=== PATIENT | female | born 1950 | race Caucasian/White ===

== ENCOUNTER 2018-02-19 09:52 | Emergency (ER) | payer OTHER ==
[~2018-02-19] VITALS: Ht 165.1 cm; Wt 105.0 kg
[~2018-02-19 09:52] MED LIST: ALBINS INH; ALBU1AER9 INH; CETI10TA84 PO; LISI-725 PO; LSX20 PO; MCRKUNK; OXYC-57 PO
[2018-02-19 10:02] VITALS: TEMP 36.8; Ht 165.1 cm; Wt 105.0 kg
[2018-02-19] MEDS ORDERED: KETOROLAC TROMETHAMINE 30 MG/ML VIAL IV STA (10:24)
--- NOTE | 2018-02-19 10:37 | DIAGNOSTIC IMAGING REPORT ---
CHEST ONE VIEW PORTABLE CLINICAL HISTORY: Atypical chest pain COMPARISON STUDY: May 2014 FINDINGS: [ The cardiac and mediastinal contours are normal. There is no evidence of focal pulmonary consolidation. There is no evidence of failure. No pleural effusions are visualized. There is minor left basilar atelectasis/scarring.. There is a 6 mm linear opacity within left midlung zone, likely representing atelectasis or summation. IMPRESSION: AP portable study. No evidence of focal pulmonary consolidation. Low suspicion 6 mm left midlung zone opacity, likely representing atelectasis or summation. Electronically signed by: Ibrahima Lopez M.D. 02/19/2018 10:36 AM Dictated Date/Time: 02/19/2018 10:33 AM
[2018-02-19 10:48] LABS: BASO % 0.1 %; BASO ABS # 0.01 K/uL (0-0.2); EOS % 0.7 %; EOS ABS # 0.05 K/uL (0-0.5); HEMATOCRIT 33.5 % (37-47); HEMOGLOBIN 10.7 g/dL (12.0-16.0); IG# 0.03 K/uL (0.00-0.02); LYMPH % 12.7 %; LYMPH ABS # 0.85 K/uL (1.2-3.4); MEAN CELL VOLUME 92.8 fL (80-100); MEAN CORPUSCULAR HEMOGLOBIN 29.6 pg (25-34); MEAN CORPUSCULAR HGB CONC 31.9 g/dl (32-36); MEAN PLATELET VOLUME 9.2 fL (7.4-10.4); MONO % 7.2 %; MONO ABS # 0.48 K/uL (0.11-0.59); NEUT % 78.9 %; NEUT ABS # 5.26 K/uL (1.4-6.5); PLATELET COUNT 148 K/uL (130-400); RED CELL DISTRIBUTION WIDTH CV 13.3 % (11.5-14.5); WHITE BLOOD COUNT 6.68 K/uL (4.8-10.8)
[2018-02-19 10:53] VITALS: O2SAT 94
[2018-02-19 11:06] LABS: ALBUMIN 3.3 gm/dl (3.4-5.0); ALT/SGPT 14 U/L (12-78); AST/SGOT 12 U/L (15-37); BLOOD UREA NITROGEN 20 mg/dl (7-18); CALCIUM 9.2 mg/dl (8.5-10.1); CARBON DIOXIDE 31 mmol/L (21-32); CREATININE 0.93 mg/dl (0.60-1.20); GLUCOSE 127 mg/dl (70-99); LIPASE 70 U/L (73-393); POTASSIUM 3.9 mmol/L (3.5-5.1); SODIUM 140 mmol/L (136-145)
[2018-02-19 11:11] LABS: ALKALINE PHOSPHATASE 69 U/L (45-117); CKMB 0.8 ng/ml (0.5-3.6)
[2018-02-19] MEDS ORDERED: SPRIN/30 INH (11:35)
[2018-02-19] MEDS ORDERED: VNTHFA/IN INH (11:35)
[2018-02-19] MEDS ORDERED: ALPR-411 PO (11:35)
[2018-02-19] MEDS ORDERED: FRS/40 PO (11:35)
[2018-02-19] MEDS ORDERED: POTA10PO PO (11:35)
[2018-02-19] MEDS ORDERED: LISI-725 PO (11:35)
[2018-02-19] MEDS ORDERED: SERT-234 PO (11:35)
[2018-02-19] MEDS ORDERED: OPTIRAY 320 IV PRN (12:00)
--- NOTE | 2018-02-19 13:06 | DIAGNOSTIC IMAGING REPORT ---
CT ANGIOGRAM OF THE CHEST CLINICAL HISTORY: Atypical left-sided chest pain. Possible pulmonary embolism COMPARISON STUDY: Chest x-ray dated 02/19/2018 TECHNIQUE: Following the IV administration of 94 mL of Optiray-320, CT angiogram of the thorax was performed from the thoracic inlet to the lung bases utilizing the pulmonary embolus protocol. Images are reviewed in the axial, sagittal, and coronal planes. IV contrast was administered without complication. MIP imaging was performed. A dose lowering technique was utilized adhering to the principles of ALARA. CT DOSE: 612.18 mGycm FINDINGS: There is a multinodular thyroid gland including a 17 mm and 18 mm right lobe nodules. Nonemergent thyroid ultrasonography is recommended in follow-up No pathologically enlarged axillary mediastinal or hilar lymph nodes were visualized. There was no evidence of thoracic aortic dilatation. There were no pulmonary artery filling defects to indicate acute pulmonary embolism. No pleural effusions are visualized. There is pulmonary emphysema. There are clustered pulmonary nodules within the left upper lobe posteriorly measuring up to 9 mm in diameter. The distribution favors an infectious etiology. Short-term follow-up is recommended. There is a 3 cm right sided paravertebral mass with associated subtle rib destruction. This lesion should be presumed neoplastic unless proven otherwise. The partially visualized portions of the spleen appears mildly enlarged IMPRESSION: 1. No evidence of acute pulmonary embolism 2. 3 cm right sided paravertebral mass with subtle associated rib destruction. This lesion should be presumed neoplastic unless proven otherwise 3. Cluster pulmonary nodules within the left upper lobe posteriorly. Distribution favors an infectious etiology. Short-term follow-up is recommended 4. Multinodular thyroid gland 5. Suspected splenomegaly Electronically signed by: Ibrahima Lopez M.D. 02/19/2018 1:05 PM Dictated Date/Time: 02/19/2018 12:55 PM
--- NOTE | 2018-02-19 13:50 | EMERGENCY ROOM VISIT NOTE ---
History Report prepared by Abby: Willian Gupta Under the Supervision of: Dr. Theo Turk M.D. (3) First contact with patient: 10:17 Chief Complaint: CHEST PAIN Stated Complaint: CHEST PAIN History of Present Illness The patient is a 67 year old female who presents to the Emergency Room with complaints of constant left lower chest pain beginning one hour ago. She was sitting when her pain began. Her pain began suddenly. The patient describes her pain as "stabbing". She rates her pain as a 7/10 in severity. She also complains of nausea. The patient denies recent trauma or injury. Her pain is improved with sitting up. and rubbing the area. Her pain is worsened with breathing. The patient is on chronic oxygen (4L NC) for emphysema. She has no history of cardiac disease, or blood clots. She denies abdominal pain, back pain , fevers, or leg swelling. The patient is not on any blood thinners. She has a former history of shingles. Source of History: patient Onset: One hour ago Position: chest (left lower) Symptom Intensity: 7/10 Quality: stabbing Timing: constant Modifying Factors (Worsening): breathing Modifying Factors (Relieving): other (sitting up. Rubbing the area. ) Associated Symptoms: + nausea, No fevers, No abdominal pain, No back pain Note: Negative: leg swelling. Review of Systems See HPI for pertinent positives & negatives. A total of 10 systems reviewed and were otherwise negative. Past Medical & Surgical Medical Problems: (1) Asthma, Unspecified, W (Acute) Exacerbation (2) Chr Airway Obstruct Nec (3) History Of Tobacco Use (4) Hypertension Nos (5) Obesity Hypoventilation Syndrome (6) Pneumonia, Organism Nos Old medical records were reviewed. Nurse's notes were reviewed and I agree with. Family History No pertinent family history stated. Social History Smoking Status: Former Smoker Alcohol Use: none Housing Status: lives alone Occupation Status: unemployed Current/Historical Medications Scheduled Lisinopril (Zestril), 20 MG PO DAILY Potassium Chloride (Potassium Chloride), 20 MEQ PO Q2D Sertraline (Zoloft), 100 MG PO DAILY Tiotropium [place] (Spiriva Handihaler), 1 CAP INH DAILY Scheduled PRN Albuterol Hfa (Ventolin Hfa), 2 PUFFS INH Q6H PRN for SOB/Wheezing Alprazolam (Xanax), 0.5 MG PO BID PRN for Anxiety Furosemide (Lasix), 40 MG PO Q2D PRN for WEIGHT GAIN Allergies Coded Allergies: No Known Allergies (Verified , 02/19/18) Physical Exam Vital Signs Date Time Temp Pulse Resp B/P (MAP) Pulse Ox O2 Delivery O2 Flow Rate FiO2 02/19/18 13:54 83 18 117/68 99 Room Air 02/19/18 13:50 74 02/19/18 12:00 79 19 108/70 94 02/19/18 11:31 84 19 104/61 94 Nasal Cannula 4.0 02/19/18 11:06 96 Nasal Cannula 4.0 02/19/18 10:54 88 24 112/64 94 Nasal Cannula 4.0 02/19/18 10:53 94 Nasal Cannula 4.0 02/19/18 10:21 95 02/19/18 10:02 36.8 104 24 132/62 94 Nasal Cannula 4.0 Physical Exam General: Chronically-ill appearing older female in no acute distress. Wearing supplemental oxygen. HEENT: Normal cephalic atraumatic. Pupils are equal round and reactive to light. Extraocular movements are intact. Oropharynx is pink with moist mucous membranes. No swelling of the mouth lips or tongue. Neck: Supple with a midline trachea. No meningeal signs or stiffness, no JVD or bruits. No Stridor. Chest: Clear to auscultation bilaterally. No wheezes or rhonchi. No increased work of breathing. Reproducible pain to the left anterior chest. No rash. Heart: regular rate and rhythm. Abdomen: Soft nontender, nondistended without rebound guarding or rigidity. Extremities: No cyanosis clubbing or edema. No calf tenderness or assymetry Spine/Back. Non tender to palpation. No CVA tenderness Skin: Good turgor without rashes. Neurologic exam: Cranial nerves two through 12 are intact. Motor and sensation are intact and symmetrical throughout. Medical Decision & Procedures ER Provider Diagnostic Interpretation: Radiology results as stated below per my review and radiologist interpretation: CHEST ONE VIEW PORTABLE FINDINGS: [ The cardiac and mediastinal contours are normal. There is no evidence of focal pulmonary consolidation. There is no evidence of failure. No pleural effusions are visualized. There is minor left basilar atelectasis/scarring.. There is a 6 mm linear opacity within left midlung zone, likely representing atelectasis or summation. IMPRESSION: AP portable study. No evidence of focal pulmonary consolidation. Low suspicion 6 mm left midlung zone opacity, likely representing atelectasis or summation. Electronically signed by: Ibrahima Lopez M.D. 02/19/2018 10:[address] ANGIOGRAM OF THE CHEST FINDINGS: There is a multinodular thyroid gland including a 17 mm and 18 mm right lobe nodules. Nonemergent thyroid ultrasonography is recommended in follow-up No pathologically enlarged axillary mediastinal or hilar lymph nodes were visualized. There was no evidence of thoracic aortic dilatation. There were no pulmonary artery filling defects to indicate acute pulmonary embolism. No pleural effusions are visualized. There is pulmonary emphysema. There are clustered pulmonary nodules within the left upper lobe posteriorly measuring up to 9 mm in diameter. The distribution favors an infectious etiology. Short-term follow-up is recommended. There is a 3 cm right sided paravertebral mass with associated subtle rib destruction. This lesion should be presumed neoplastic unless proven otherwise. The partially visualized portions of the spleen appears mildly enlarged IMPRESSION: 1. No evidence of acute pulmonary embolism 2. 3 cm right sided paravertebral mass with subtle associated rib destruction. This lesion should be presumed neoplastic unless proven otherwise 3. Cluster pulmonary nodules within the left upper lobe posteriorly. Distribution favors an infectious etiology. Short-term follow-up is recommended 4. Multinodular thyroid gland 5. Suspected splenomegaly Electronically signed by: Ibrahima Lopez M.D. 02/19/2018 1:05 PM Laboratory Results 02/19/18 10:35 Red Blood Count 3.61, Mean Corpuscular Volume 92.8, Mean Corpuscular Hemoglobin 29.6, Mean Corpuscular Hemoglobin Concent 31.9, Mean Platelet Volume 9.2, Neutrophils (%) (Auto) 78.9, Lymphocytes (%) (Auto) 12.7, Monocytes (%) (Auto) 7.2, Eosinophils (%) (Auto) 0.7, Basophils (%) (Auto) 0.1, Neutrophils # (Auto) 5.26, Lymphocytes # (Auto) 0.85, Monocytes # (Auto) 0.48, Eosinophils # (Auto) 0.05, Basophils # (Auto) 0.01 02/19/18 10:35 Test 4/16/18 10:35 02/19/18 12:28 White Blood Count 6.68 K/uL (4.8-10.8) Red Blood Count 3.61 M/uL (4.2-5.4) Hemoglobin 10.7 g/dL (12.0-16.0) Hematocrit 33.5 % (37-47) Mean Corpuscular Volume 92.8 fL (80-100) Mean Corpuscular Hemoglobin 29.6 pg (25-34) Mean Corpuscular Hemoglobin Concent 31.9 g/dl (32-36) Platelet Count 148 K/uL (130-400) Mean Platelet Volume 9.2 fL (7.4-10.4) Neutrophils (%) (Auto) 78.9 % Lymphocytes (%) (Auto) 12.7 % Monocytes (%) (Auto) 7.2 % Eosinophils (%) (Auto) 0.7 % Basophils (%) (Auto) 0.1 % Neutrophils # (Auto) 5.26 K/uL (1.4-6.5) Lymphocytes # (Auto) 0.85 K/uL (1.2-3.4) Monocytes # (Auto) 0.48 K/uL (0.11-0.59) Eosinophils # (Auto) 0.05 K/uL (0-0.5) Basophils # (Auto) 0.01 K/uL (0-0.2) RDW Standard Deviation 45.0 fL (36.4-46.3) RDW Coefficient of Variation 13.3 % (11.5-14.5) Immature Granulocyte % (Auto) 0.4 % Immature Granulocyte # (Auto) 0.03 K/uL (0.00-0.02) D-Dimer 250 ug/L FEU (0-500) Anion Gap 4.0 mmol/L (3-11) Est Creatinine Clear Calc Drug Dose 71.6 ml/min Estimated GFR () 74.2 Estimated GFR (Non- 64.0 BUN/Creatinine Ratio 21.4 (10-20) Calcium Level 9.2 mg/dl (8.5-10.1) Total Bilirubin 0.2 mg/dl (0.2-1) Direct Bilirubin < 0.1 mg/dl (0-0.2) Aspartate Amino Transf (AST/SGOT) 12 U/L (15-37) Alanine Aminotransferase (ALT/SGPT) 14 U/L (12-78) Alkaline Phosphatase 69 U/L (45-117) Total Creatine Kinase 47 U/L (26-192) Creatine Kinase MB 0.8 ng/ml (0.5-3.6) Creatine Kinase MB Ratio 1.7 (0-3.0) Total Protein 7.0 gm/dl (6.4-8.2) Albumin 3.3 gm/dl (3.4-5.0) Lipase 70 U/L (73-393) Bedside Troponin I < 0.030 ng/ml (0-0.045) Laboratory studies as stated above per my review. Medications Administered Medications (Trade) Dose Ordered Sig/Aletha Route Start Time Stop Time Status Last Admin Dose Admin Ketorolac Tromethamine (Toradol Inj) 30 mg NOW STAT IV 02/19/18 10:24 02/19/18 10:25 DC 02/19/18 10:55 30 MG ECG Per My Interpretation Indication: chest pain Rate (beats per minute): 99 Rhythm: normal sinus Findings: nonspecific-ST abn, other (Low voltage) Comparison ECG Date: May 17, 2014 Change: no significant change Change: Repeat ECG shows a normal sinus rhythm with a rate of 76 bpm. Non-specific T- wave abnormality. Low voltage. No significant change from prior ECG. ED Course 1017: Past medical records reviewed. The patient was evaluated in room B3B, and a complete history and physical examination were performed. 1024: Ordered Toradol Inj 30 mg IV. 1056: I checked in on the patient. She appears comfortable. 1142: I reassessed the patient. She feels better. We discussed the prospect of a CT and she verbalized agreement. 1317: I spoke with the patient. She would like to go home. 1338: Upon reevaluation, the patient is resting comfortably. I discussed the results and treatment plan with her. She verbalized agreement of the treatment plan. The patient was discharged home. Medical Decision Differentials include, but are not limited to; ACS, PE, pneumothorax, shingles, and musculoskeletal pain. This patient comes in as described above. She was placed in room B3. She is having left sided chest pain underneath her left breast into the back. it is reproducible on palpation and movement and breathing. There is no rash or anything to suggest shingles. IV access was established and blood work was obtained. she was given IV Toradol and is feeling much better. She had 2 EKGs as well as 2 sets of cardiac enzymes they were unremarkable and there is nothing to suggest acute coronary syndrome or arrhythmia on the EKG. troponins were negative without change between the 2. There is no change between EKG. Chest x-ray was unremarkable and shows no pneumothorax. She has no acute electrolyte or metabolic abnormalities. I did do a chest CT to evaluate for PE and other acute abnormalities with no evidence of PE. She does have a 3 cm paraspinal mass however on the opposite side of her pain which I think is incidental finding today but will need close follow-up. Patient does not want to be admitted I think this can be follow-up as an outpatient. There is some questionable nodules as well left apex which the patient is asymptomatic with a do not think acutely infectious. I did discuss the case with Dr. Miles and the patient will follow-up in the clinic for this and will likely need referral to specialist. She was encouraged to return if: increasing pain, worsening of symptoms, shortness of breath, any new problems or concerns. The patient was found to have the plan and she was discharged to home. Medication Reconcilliation Current Medication List: was personally reviewed by me Blood Pressure Screening Patient's blood pressure: Normal blood pressure Blood pressure disposition: Did not require urgent referral Consults Time Called: 1322 Consulting Physician: Dr. Jackson - Primary Care Returned Call: [phone] Jackson on the patient's case. The patient will follow up in the office. Impression Primary Impression: Left sided chest pain Additional Impression: Right paraspinous mass Scribe Attestation The scribe's documentation has been prepared under my direction and personally reviewed by me in its entirety. I confirm that the note above accurately reflects all work, treatment, procedures, and medical decision making performed by me. Departure Information Dispostion Home / Self-Care Referrals May Mosley M.D. (PCP) Forms Call Back Authorization, HOME CARE DOCUMENTATION FORM, IMPORTANT VISIT INFORMATION Patient Instructions My [facility] Additional Instructions Rest Use Ibupfren 400 mg every 6 hours, take with food Follow-up with your doctor next 1-2 days for recheck Return if: Increasing pain, worsening of symptoms, shortness of breath, fever chills, any new problems or concerns Problem Qualifiers
[2018-02-19 13:54] VITALS: BP 117/68; PULSE 83; O2SAT 99
== END 2018-02-19 14:30 | disposition home or self-care (01) ==
LOC: C.EDB 09:53
DX: R07.9 Chest pain, unspecified (principal); R22.2 Localized swelling, mass and lump, trunk; R91.8 Other nonspecific abnormal finding of lung field; R11.0 Nausea; E04.2 Nontoxic multinodular goiter; Z87.891 Personal history of nicotine dependence; J44.9 Chronic obstructive pulmonary disease, unspecified; I10 Essential (primary) hypertension; Z79.899 Other long term (current) drug therapy; Z87.01 Personal history of pneumonia (recurrent)